=== PATIENT | female | born 1985 | race American Indian/Alaskan Native ===

== ENCOUNTER 2019-03-08 10:35 | Emergency (ER) | payer MEDICAID ==
[2019-03-08 11:22] VITALS: BP 110/74
--- NOTE | 2019-03-08 11:43 | Emergency Department Report ---
ED Female HPI - General Chief complaint: Vaginal Bleeding Stated complaint: STOMACH PAIN Time Seen by Provider: 03/08/19 11:31 Source: patient Mode of arrival: Ambulatory Limitations: No Limitations - History of Present Illness Initial comments: Patient presents to the ED at approximately 12 weeks gestation complaining of vaginal bleeding that began about 30 minutes ago. Patient stated last menstrual period as 11/08/2018. Patient states her RIB CUTTER is Dr. Cardoso and has an appointment today at the office. Complaint: vaginal bleeding - Related Data Allergies Allergy/AdvReac Type Severity Reaction Status Date / Time No Known Allergies Allergy Verified 03/08/19 11:22 ED Review of Systems ROS: Stated complaint: STOMACH PAIN Other details as noted in HPI Comment: All other systems reviewed and negative ED Past Medical Hx - Past Medical History Previous Medical History?: No - Surgical History Past Surgical History?: Yes Additional Surgical History: - Social History Smoking Status: Never Smoker Substance Use Type: None ED Physical Exam - General Limitations: No Limitations General appearance: alert, in no apparent distress - Head Head exam: Present: atraumatic, normocephalic - Eye Eye exam: Present: normal appearance - ENT ENT exam: Present: mucous membranes moist - Neck Neck exam: Present: normal inspection - Respiratory Respiratory exam: Present: normal lung sounds bilaterally. Absent: respiratory distress - Cardiovascular Cardiovascular Exam: Present: regular rate, normal rhythm. Absent: systolic murmur, diastolic murmur, rubs, gallop - GI/Abdominal GI/Abdominal exam: Present: soft, normal bowel sounds. Absent: distended, tenderness - Extremities Exam Extremities exam: Present: normal inspection, full ROM - Back Exam Back exam: Present: normal inspection - Neurological Exam Neurological exam: Present: alert, oriented X3 - Psychiatric Psychiatric exam: Present: normal affect, normal mood - Skin Skin exam: Present: warm, dry, intact, normal color. Absent: rash ED Course Vital Signs 03/08/19 03/08/19 10:35 12:19 Temperature 98.6 F Pulse Rate 87 Respiratory 16 18 Rate Blood Pressure 110/74 [Right] O2 Sat by Pulse 100 99 Oximetry ED Medical Decision Making - Lab Data Result diagrams: 03/08/19 11:40 03/08/19 11:40 - Radiology Data Radiology results: report reviewed, image reviewed ULTRASOUND OB <= 14 WEEKS FETUS HISTORY: Vaginal bleeding COMPARISON: None. TECHNIQUE: Routine transabdominal OB ultrasound performed. FINDINGS: Uterus: Mildly enlarged measuring 13.0 x 6.9 x 8.6 cm. Gestational Sac: Well-defined oval shape and intrauterine in location. Fetus/Embryo: [place]-rump length of 5.4 cm, corresponding to an estimated gestational age of 12 weeks 0 days. Embryonic/ anatomy is too small for evaluation. Embryonic/ cardiac activity: 163bpm Placenta: Too small for evaluation. Amniotic fluid volume: Subjectively appropriate for gestational age. Ovaries: The right ovary is normal in size and appearance with normal blood flow, measuring 3.0 x 2.0 x 2.7 cm. The left ovary is normal in size and appearance with normal blood flow, measuring 3.5 x 1.4 x 2.6 cm. Additional findings: None. IMPRESSION Viable, single intrauterine dated at 12 weeks 0 days. No acute abnormality is detected. Signer Name: Jason Vera Jr, MD Signed: 03/08/2019 2:06 PM Workstation Name: [id number] Transcribed By: TTR Dictated By: JASON VERA JR, MD Electronically Authenticated By: JASON VERA JR, MD Signed Date/Time: 03/08/19 1406 - Medical Decision Making 28-year-old female presents to ED with vaginal bleeding and ED course: Pt received ultra sound, CBC, urinalysis, test and quantitative ED All labs within normal limits, quantitative elevated matching gestation age Patient states that bleeding is resolved when she is went into the bathroom to check Patient is followed by an RIB CUTTER Dr. Cardoso Ultrasound report. See reported above Vital signs normalized patient is in no acute distress. I discussed with the patient if follow-up with her RIB CUTTER. She had a follow-up appointment with her RIB CUTTER today at 2:30 PM I discussed all labs and ultrasound findings with the patient. I discussed with the patient that he if bleeding worsens or new symptoms develop to return to ED immediately Critical care attestation.: If time is entered above; I have spent that time in minutes in the direct care of this critically ill patient, excluding procedure time. ED Disposition Clinical Impression: Vaginal bleeding during Disposition: DC-01 TO HOME OR SELFCARE Is pt being admited?: No Does the pt Need Aspirin: No Condition: Stable Instructions: Threatened Miscarriage (ED) Additional Instructions: Make sure to follow up with the primary care physician as discussed. Take all your medications as you've been prescribed. If you have any worsening symptoms or develop new symptoms please return to ED immediately. Referrals: ROBERTO CHILD MD [Primary Care Provider] - 3-5 Days KUSHAL CARDOSO MD [Staff Physician] - 3-5 Days Forms: Work/School Release Form(ED) Time of Disposition: 14:14
[2019-03-08 12:04] LABS: Basophils % (Auto) 0.3 % (0.0-1.8); Eosinophils # (Auto) 0.1 K/mm3 (0.0-0.4); Eosinophils % (Auto) 1.3 % (0.0-4.3); Hematocrit 37.5 % (30.3-42.9); Hemoglobin 13.2 gm/dl (10.1-14.3); Lymphocytes # (Auto) 2.7 K/mm3 (1.2-5.4); Lymphocytes % (Auto) 30.8 % (13.4-35.0); Mean Corpuscular HGB Conc 35 % (30-34); Mean Corpuscular Volume 96 fl (79-97); Monocytes # (Auto) 0.6 K/mm3 (0.0-0.8); Monocytes % (Auto) 7.4 % (0.0-7.3); Platelet Count 235 K/mm3 (140-440); Red Blood Count 3.91 M/mm3 (3.65-5.03); Red Cell Distribution Width 11.8 % (13.2-15.2)
[2019-03-08 12:24] LABS: BUN/Creatinine Ratio 18; Blood Urea Nitrogen 7 mg/dL (7-17); Calcium 8.9 mg/dL (8.4-10.2); Hemolysis Index 4
[2019-03-08 12:34] LABS: Bilirubin,Urine NEG (Negative); Blood,Urine SM (Negative); Color,Urine Yellow (Yellow); Mucus,Urine 1+ /HPF; Protein,Urine <15 mg/dL mg/dL (Negative)
--- NOTE | 2019-03-08 14:10 | Ultrasound Report ---
ULTRASOUND OB <= 14 WEEKS FETUS HISTORY: Vaginal bleeding COMPARISON: None. TECHNIQUE: Routine transabdominal OB ultrasound performed. FINDINGS: Uterus: Mildly enlarged measuring 13.0 x 6.9 x 8.6 cm. Gestational Sac: Well-defined oval shape and intrauterine in location. Fetus/Embryo: [place]-rump length of 5.4 cm, corresponding to an estimated gestational age of 12 weeks 0 days. Embryonic/ anatomy is too small for evaluation. Embryonic/ cardiac activity: 163bpm Placenta: Too small for evaluation. Amniotic fluid volume: Subjectively appropriate for gestational age. Ovaries: The right ovary is normal in size and appearance with normal blood flow, measuring 3.0 x 2. 0 x 2.7 cm. The left ovary is normal in size and appearance with normal blood flow, measuring 3.5 x 1.4 x 2.6 cm. Additional findings: None. IMPRESSION Viable, single intrauterine dated at 12 weeks 0 days. No acute abnormality is detected. Signer Name: Jason Vera Jr, MD Signed: 03/08/2019 2:06 PM Workstation Name: [id number]
== END 2019-03-08 16:51 | disposition home or self-care (01) ==
LOC: ED 10:35
DX: O20.8 Other hemorrhage in early pregnancy (principal); O26.891 Other specified pregnancy related conditions, first trimester; R10.2 Pelvic and perineal pain; Z3A.12 12 weeks gestation of pregnancy
CPT/HCPCS: 36415; 76801; 80048; 81001; 84702; 85025; 86900; 86901

== ENCOUNTER 2020-12-18 03:33 | Outpatient (CLI) | payer MEDICAID ==
[2020-12-18 03:53] VITALS: BP 115/73
== END 2020-12-18 04:45 | disposition home or self-care (01) ==
LOC: TRG 03:33 → APU 03:44 → TRG 04:45
PROVIDERS: ATTEND Obstetrics & Gynecology
DX: O36.8130 Decreased fetal movements, third trimester, not applicable or unspecified (principal); Z3A.36 36 weeks gestation of pregnancy
CPT/HCPCS: 59025

== ENCOUNTER 2020-12-25 18:03 | Inpatient (IN) | payer MEDICAID ==
[2020-12-25] MEDS ORDERED: LACTATED RINGERS 1,000 ML ONE (19:46)
[2020-12-25] MEDS ORDERED: TERBUTALINE 1 MG/1 ML INJ SUB-Q PRN (20:44)
[2020-12-25] MEDS ORDERED: MINERAL OIL 30 ML ORAL LIQD PO PRN (20:44)
[2020-12-25] MEDS ORDERED: ePHEDrine SULFATE 50 MG/1 ML INJ IV PRN (20:44)
[2020-12-25] MEDS ORDERED: OXYTOCIN DRIP 30 UNITS/500 ML BAG IV SCH ×2 (21:00)
[2020-12-25 21:23] LABS: Hematocrit 40.2 % (30.3-42.9); Hemoglobin 13.7 gm/dl (10.1-14.3); Mean Corpuscular HGB Conc 34 % (30-34); Mean Corpuscular Volume 96 fl (79-97); Platelet Count 192 K/mm3 (140-440); Red Cell Distribution Width 13.4 % (13.2-15.2)
[2020-12-25] MEDS ORDERED: LIDOCAINE (2%) 20 MG/1 ML VIAL 20 ML MDV INFILTRATI ONE (21:44)
[2020-12-25] MEDS ORDERED: LACTATED RINGERS 1,000 ML IV SCH (21:45)
--- NOTE | 2020-12-26 04:06 | History and Physical Report ---
History of Present Illness Date of examination: 12/26/20 Date of admission: 12/25/20 18:03 Chief complaint: low fluid History of present illness: 35-year-old -0-0-2 at 38+2 weeks who was admitted for findings of oligohydramnios. The patient is being followed by maternal- medicine for advanced maternal age, gestational diabetes and obesity. The recommendation of maternal- medicine to proceed with delivery. The patient had a amniotic fluid index of 4.9 cm. She denies any leakage of fluid. The patient's course is also complicated by previous delivery x2. The patient has declined tubal ligation. 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 Social history: single - Obstetrical History Expected Date of Delivery: 01/07/21 Actual Gestation: 38 Week(s) 2 Day(s) : 3 Para: 2 Hx # Term Pregnancies: 2 Number of Pregnancies: 0 Spontaneous Abortions: 0 Induced : 0 Number of Living Children: 2 Medications and Allergies Allergies Allergy/AdvReac Type Severity Reaction Status Date / Time No Known Allergies Allergy Verified 03/08/19 11:22 Home Medications Medication Instructions Recorded Confirmed Last Taken Type Ibuprofen [Motrin] 800 mg PO Q8HR PRN #30 tablet 09/18/19 12/26/20 Unknown Rx RX: Ferrous Sulfate [Feosol 325 MG 325 mg PO BID #60 tablet 09/18/19 12/26/20 12/25/20 Rx tab] oxyCODONE /ACETAMINOPHEN [Percocet 1 tab PO Q6HR PRN #40 tablet 09/18/19 12/26/20 Unknown Rx 5/325] Active Meds: Active Medications Ephedrine Sulfate (Ephedrine Sulfate 50 Mg/1 Ml Inj) 10 mg IV Q2M PRN PRN Reason: Hypotension Oxytocin/Sodium Chloride (Pitocin/Ns 30 Unit/500ml) 30 units in 500 mls @ 2 mls/hr IV TITR ALFREDO; Protocol Lactated Ringer's (Lactated Ringers) 1,000 mls @ 125 mls/hr IV DIRECT ALFREDO Oxytocin/Sodium Chloride (Pitocin/Ns 30 Unit/500ml) 30 units in 500 mls @ 40 mls/hr IV TITR ALFREDO; Protocol Mineral Oil (Mineral Oil 30 Ml Oral Liqd) 30 ml PO QHS PRN PRN Reason: Constipation Terbutaline Sulfate (Terbutaline 1 Mg/1 Ml Inj) 0.25 mg SUB-Q ONCE PRN PRN Reason: Hyperstimulation/Hypertonicity Review of Systems All systems: negative - Vital Signs Vital signs: Vital Signs Pulse BP 95 H 114/68 12/25/20 19:05 12/25/20 19:05 Temp Pulse Resp BP Pulse Ox 98.3 F 89 30 H 113/69 82 L 12/26/20 00:09 12/26/20 00:12 12/26/20 00:09 12/26/20 00:11 12/26/20 00:12 - Physical Exam Breasts: Positive: deferred Cardiovascular: Regular rate Lungs: Positive: Clear to auscultation Abdomen: Positive: normal appearance Results Result Diagrams: 12/25/20 20:39 Abnormal lab results 12/25/20 Range/Units 20:39 MCH 33 H (28-32) pg All other labs normal. Assessment and Plan - Patient Problems (1) Oligohydramnios Current Visit: Yes Status: Acute Plan to address problem: admit for repeat delivery (2) Previous delivery, delivered Current Visit: Yes Status: Acute
[2020-12-26] MEDS ORDERED: BICITRA ORAL LIQD 30ML PO ONE ×2 (04:08→07:00)
[2020-12-26] MEDS ORDERED: METOCLOPRAMIDE 10 MG/2 ML INJ IV ONE ×2 (04:08→07:00)
[2020-12-26] MEDS ORDERED: FAMOTIDINE 20 MG/2 ML INJ IV ONE ×2 (04:08→07:00)
[2020-12-26] MEDS ORDERED: LACTATED RINGERS 1,000 ML IV SCH (04:15)
[2020-12-26] MEDS ORDERED: ceFAZolin/Water 2 GM/20 ML 2 GM/20 ML SYRINGE IV NR (05:00)
[2020-12-26] MEDS ORDERED: OXYTOCIN DRIP 30 UNITS/500 ML BAG IV SCH ×2 (05:00→09:00)
--- NOTE | 2020-12-26 07:01 | Anesthesia Day of Surgery ---
Anesthesia Day of Surgery - Day of Surgery Patient Examined: Yes Patient H&P Reviewed: Yes Patient is NPO: Yes
--- NOTE | 2020-12-26 07:01 | Anesthesia Consultation ---
Anesthesia Consult and Med Hx Date of service: 12/26/20 - Airway Anesthetic Teeth Evaluation: Good ROM Head & Neck: Adequate Mental/Hyoid Distance: Adequate Mallampati Class: Class II Intubation Access Assessment: Probably Good - Pulmonary Exam CTA: Yes - Cardiac Exam Cardiac Exam: RRR - Pre-Operative Health Status ASA Pre-Surgery Classification: ASA3 Proposed Anesthetic Plan: Spinal - Pulmonary Hx Asthma: No COPD: No Hx Pneumonia: No - Cardiovascular System Hx Hypertension: No - Central Nervous System Hx Seizures: No Hx Psychiatric Problems: No - Endocrine Hx Renal Disease: No Hx End Stage Renal Disease: No Hx Non-Insulin Dependent Diabetes: Yes Hx Hypothyroidism: No Hx Hyperthyroidism: No - Hematic Hx Anemia: No Hx Sickle Cell Disease: No - Other Systems Hx Alcohol Use: No Hx Obesity: Yes
[2020-12-26] MEDS ORDERED: OXYTOCIN 10 UNIT/1 ML INJ ONE (08:04)
[2020-12-26] MEDS ORDERED: LACTATED RINGERS 1,000 ML ONE (08:19)
[2020-12-26] MEDS ORDERED: HETASTARCH 6% 500 ML IV ONE (08:28)
--- NOTE | 2020-12-26 08:37 | Procedure Note ---
OB Delivery Note - Delivery Date of Delivery: 12/26/20 Surgeon: LAVERNE MCKENNA Estimated blood loss: 500cc - Section Preop diagnosis: repeat , other (Oligohydramnios) Postop diagnosis: same section procedure: section, repeat low transverse Disposition: PACU Complications: none - A at 1 minute: 8 at 5 minutes: 9 Infant Gender: Male (Weight 6 pounds 7 ounces)
--- NOTE | 2020-12-26 08:39 | Operative Report ---
Operative Report Operative Report: Date of surgery: December 26, 2020 Preoperative diagnosis: at 38+2 weeks; previous delivery; ol igohydramnios Postoperative diagnosis: Same as above Procedure: Repeat low transverse delivery Surgeon: Amparo Allan M.D. Anesthesia: Regional Estimated blood loss: 500 mL IV fluids: 1000 mL Urine output: 25 mL Findings: Liveborn male with Apgars of 8 and 9 weight 6 pounds 7 ounces Indications: 35-year-old -0-0-2 at 38+2 weeks who presents for repeat delivery for oligohydramnios. Procedure: The patient was taken to the operating room and given regional anesthesia without complication. She was prepped and draped in a normal sterile fashion. A Pfannenstiel skin incision was made down to layer the fascia which was nicked in the midline extended laterally with the Bovie cautery. The superior aspect of the rectus fascia was grasped with [place] clamps x2 and the rectus muscles off sharply. This was done in inferior fashion as well. The rectus muscle midline and peritoneum entered bluntly. An Josse retractor was then inserted. A bladder blade was placed. The vesicouterine peritoneum was then entered sharply with Metzenbaum scissors. A bladder flap was created digitally. A low transverse uterine in cision was then made and extended digitally. There was meconium stained fluid upon entry into the uterine cavity. The head was delivered through the incision with fundal pressure. The cord was clamped and cut x2 and infant was passed off to pediatrics. The placenta was then manually extracted. The uterus was then exteriorized and cleared of clots and debris. The uterine incision was then closed in a running locked fashion with 0 Vicryl additional imbricating stitch was applied for 2 layer closure. The posterior cul-de-sac was then copiously irrigated. The uterus was repl aced back into the abdomen and pelvis were the gutters were then irrigated. The Josse retractor was then removed. The peritoneum was then reapproximated with 3-0 Vicryl incorporating the rectus muscle. The fascia was then closed with 0 Vicryl in a running fashion. The skin was then reapproximated with 3-0 Monocryl on a Dustin needle subcuticular fashion. Steri-Strips to place across the incision and a Crede procedures performed at the end of the surgery. A pressure dressing was applied to the incision. The surgery productive of a liveborn male with Apgars of 8 and 9 weight 6 pounds 7 ounces. The patient was taken to the recovery room in stable condition. All sponge laps and needle counts correct x2.
--- NOTE | 2020-12-26 08:41 | Progress Note ---
Spinal Anesthesia Block - Spinal Anesthesia Block Start Time: 07:42 Stop Time: 07:48 Performed by:: YOAN REVELES Procedure: Sitting, sterile chlorahexadine 0.5% prep/drape, 1% lidocaine skin local, 25G spinal needle + introducer at L3-4, + CSF, - Heme, [1.9 ml 0.5% bupivacaine + 10 mcg dexmedetomidine] injected, drape removed, patient positioned supine with left uterine displacement, and spinal level verified to be adequate prior to surgery. Yoan DIETRICH
[2020-12-26] MEDS ORDERED: KETOROLAC 30 MG/1 ML INJ IV PRN (09:00)
[2020-12-26] MEDS ORDERED: WITCH HAZEL/ GLYCERIN PAD TP PRN (09:00)
[2020-12-26] MEDS ORDERED: NALOXONE 0.4 MG/1 ML INJ IV PRN (09:00)
[2020-12-26] MEDS ORDERED: MORPHINE 4 MG/1 ML INJ IV PRN (09:00)
[2020-12-26] MEDS ORDERED: ACETAMINOPHEN 325 MG TAB PO PRN (09:00)
[2020-12-26] MEDS ORDERED: LANOLIN/ZINC/DIMETHICONE (LANSINOH) 7 GM TP PRN (09:00)
[2020-12-26] MEDS ORDERED: BUPIVACAINE/PF (0.5%) 5 MG/1 ML 30 ML VIAL INFILTRATI ONE (09:21)
[2020-12-26] MEDS ORDERED: PHENYLEPHRINE 10 MG/1 ML INJ SDV ONE (09:21)
[2020-12-26] MEDS ORDERED: dexAMETHasone 20 MG/5 ML VIAL ONE (09:21)
[2020-12-26] MEDS ORDERED: SODIUM CHLORIDE 0.9% 100 ML ONE (09:21)
[2020-12-26] MEDS ORDERED: KETOROLAC 30 MG/1 ML INJ ONE (09:21)
[2020-12-26] MEDS ORDERED: ONDANSETRON 4 MG/2 ML INJ ONE (09:21)
--- NOTE | 2020-12-26 09:29 | Progress Note ---
Regional Anesthesia Block - Regional Anesthesia Block Start Time: 08:55 Stop Time: 09:00 Performed By:: YOAN REVELES Procedure: U/S guided bilateral tap block performed for post-operative pain requested by Dr. Liang. H&P & labs reviewed. Procedure explained, questions answered, consent obtained. Patient in the supine position with ekg, blood pressure cuff and pulse ox on and working in PACU. Timeout performed immediately before start of procedure. Probe placed in the mid-axillary line and the external oblique, internal oblique, and transverse abdominus muscles identified. Skin was cleansed with chlorahexadine 0.5% and allowed to dry. A 4" 20 G Hanson echogenic needle was advanced in plane until the tip was in the fascial plane between the internal oblique and the transverse abdominus. After negative aspiration 35 ml/side of [30 ml 0.5% Bupivacaine], [10 mg dexamethasone], and [40 ml sterile saline] was injected in 5 ml increments with negative aspiration in between. Patient tolerated procedure well. Yoan DIETRICH
--- NOTE | 2020-12-26 13:24 | Post Anesthesia Evaluation ---
- Post Anesthesia Evaluation Patient Participated: Yes Airway Patent: Yes Stable Respiratory Function: Yes Nausea/Vomiting: No Temp > 96.8F: Yes Pain Manageable: Yes Adequeate Hydration: Yes Anesthesia Complications: No Block Receding Appropriately: Yes
[2020-12-26] MEDS: D5W/LACTATED RINGERS 1,000 ML IV SCH ×2 (16:20→23:52)
[2020-12-26] MEDS: oxyCODONE /ACETAMINOPHEN 5-325MG TAB PO PRN (16:25)
[2020-12-26 20:11] LABS: Hematocrit 33.6 % (30.3-42.9); Hemoglobin 11.3 gm/dl (10.1-14.3)
[2020-12-27] MEDS: oxyCODONE /ACETAMINOPHEN 5-325MG TAB PO PRN ×4 (04:58→23:17)
--- NOTE | 2020-12-27 10:27 | Progress Note ---
Assessment and Plan Routine postop care - Patient Problems (1) Previous delivery, delivered Current Visit: Yes Status: Acute Plan to address problem: POD 1 -post op care per routine -ambulation/IS use encouraged Anticipate discharge POD 2 (2) Gestational diabetes Current Visit: Yes Status: Acute Plan to address problem: -repeat testing PP Subjective - Subjective Principal diagnosis: Repeat delivery Interval history: 35-year-old s/p RCD at 38w2d for oligohydramnios with hx of prior delivery and undesired fertility. was complicated by advanced maternal age, gestational diabetes and obesity. Patient reports: appetite normal, voiding normally, pain well controlled, flatus, ambulating normally : doing well Objective - Vital Signs Latest vital signs: Vital Signs Temp Pulse Resp BP BP Pulse Ox 12/27/20 08:13 98.2 F 63 18 100/70 100 12/27/20 05:26 98.2 F 74 18 96/62 98 12/27/20 01:32 98.9 F 65 18 102/63 100 12/26/20 21:39 99.0 F 67 18 112/74 100 12/26/20 16:30 98.0 F 77 18 105/61 95 12/26/20 11:12 97.7 F 69 22 87/47 98 Intake and Output 12/26/20 12/27/20 12/27/20 22:59 06:59 14:59 Intake Total 480 1121.667 Output Total 1700 600 Balance -1220 521.667 Intake: IV 941.667 D5lr 1,000 ml @ 125 mls/ 941.667 hr IV DIRECT ALFREDO Rx#: [id number] Intake, Free Water 480 180 Output: Urine 1700 600 Indwelling Catheter 1700 Void 600 Other: Total, Output Amount 900 600 # Voids Void 2 - Exam Breasts: Present: deferred Cardiovascular: Present: Regular rate Lungs: Present: Clear to auscultation Abdomen: Present: normal appearance Uterus: Present: normal, firm. Absent: tenderness Extremities: Present: normal Incision: Present: normal, dry, intact
[2020-12-27] MEDS: IBUPROFEN 600 MG TAB PO PRN (18:07)
[2020-12-28] MEDS: oxyCODONE /ACETAMINOPHEN 5-325MG TAB PO PRN (07:54)
--- NOTE | 2020-12-28 08:22 | Progress Note ---
Assessment and Plan Routine postop care Discharge today. - Patient Problems (1) Previous delivery, delivered Current Visit: Yes Status: Acute Plan to address problem: POD 2 -post op care per routine -ambulation/IS use encouraged -br/bt feeding-tubal ligation not completed,plans for Mirena PP (2) Gestational diabetes Current Visit: Yes Status: Acute Plan to address problem: -repeat testing PP Subjective - Subjective Principal diagnosis: Repeat delivery Interval history: 35-year-old s/p RCD at 38w2d for oligohydramnios with hx of prior delivery. was complicated by advanced maternal age, gestational diabetes and obesity. Patient reports: appetite normal, voiding normally, pain well controlled, flatus, ambulating normally [place]: doing well Objective - Vital Signs Latest vital signs: Vital Signs Temp Pulse Resp BP BP Pulse Ox 12/28/20 00:18 97.9 F 89 18 107/72 97 12/27/20 23:17 18 12/27/20 15:20 98.0 F 91 H 18 112/72 100 Intake and Output 12/27/20 12/28/20 12/28/20 22:59 06:59 14:59 Intake Total 360 240 Balance 360 240 Intake: Oral 240 Intake, Free Water 360 Other: Total, Intake Amount 240 # Voids Void 2 1 - Exam Breasts: Present: normal Cardiovascular: Present: Regular rate Lungs: Present: Clear to auscultation Abdomen: Present: normal appearance, soft, normal bowel sounds. Absent: distention, tenderness, guarding Uterus: Present: normal, firm Extremities: Present: normal Incision: Present: normal, dry, intact
--- NOTE | 2020-12-28 08:25 | Discharge Summary ---
Providers - Providers Date of Admission: 12/25/20 18:03 Date of discharge: 12/28/20 Attending physician: LAVERNE MCKENNA Primary care physician: LAVERNE MCKENNA Hospitalization Reason for admission: section Procedure: section, repeat low transverse Procedure details: Repeat delivery, hx of prior x2. For details see operative report. No complications documented. Incision: normal, dry, intact Other procedures: none complications: none Discharge diagnosis: IUP at term delivered baby: male Hospital course: Patient was sent for delivery after MFM evaluation was significant for oligohydramnios. Repeat delivery completed without difficulty. She delivered a liveborn male infant with Apgars of 8 and 9 weight 6 pounds 7 ounc es. On POD 2 the patient was meeting criteria for discharge with stable VSS and hematocrit, tolerating po with pain controlled on oral meds and desired to go home. Condition at discharge: Good Disposition: DC-01 TO HOME OR SELFCARE - Discharge Diagnoses (1) Previous delivery, delivered Status: Acute Comment: br/bt feeding, requesting Mirena placement outpatient (2) Gestational diabetes Status: Acute Comment: will need repeat evaluation PP Plan - Discharge Medications Prescriptions: Ferrous Sulfate [Feosol 325 MG tab] 325 mg PO BID #60 tablet Ibuprofen [Motrin 800 MG tab] 800 mg PO Q8HR PRN #30 tablet PRN Reason: Pain, Moderate (4-6) oxyCODONE /ACETAMINOPHEN [Percocet 5/325 mg] 1 tab PO Q6HR PRN #20 tablet PRN Reason: Pain , Severe (7-10) - Provider Discharge Summary Activity: routine, no sex for 6 weeks Diet: routine Instructions: routine Additional instructions: [] Smoking cessation referral if applicable(refer to patient education folder for contact #) [] Refer to [facility] Booklet Call your doctor immediately for: * Fever > 100.5 * Heavy vaginal bleeding ( >1 pad per hour) * Severe persistent headache * Shortness of breath * Reddened, hot, painful area to leg or breast * Drainage or odor from incision. * Keep incision clean and dry at all times and follow doctor's instructions regarding bathing/showering - Follow up plan Follow up: LAVERNE MCKENNA MD [Primary Care Provider] - 7 Days
[2020-12-28] MEDS: IBUPROFEN 600 MG TAB PO PRN (12:13)
[2020-12-28 18:59] VITALS: BP 111/76
== END 2020-12-28 16:00 | disposition home or self-care (01) | DRG 766 ==
LOC: APU 18:03 → LD 18:04 → OB 12-26 11:28
PROVIDERS: ADMIT Obstetrics & Gynecology; ATTEND Obstetrics & Gynecology
PROC: 10D00Z1 Extraction of Products of Conception, Low, Open Approach (ICD-10-PCS; principal; 2020-12-26)
PROC: 3E0T3BZ Introduction of Anesthetic Agent into Peripheral Nerves and Plexi, Percutaneous Approach (ICD-10-PCS; 2020-12-26)
DX: O41.03X0 Oligohydramnios, third trimester, not applicable or unspecified (principal); O34.211 Maternal care for low transverse scar from previous cesarean delivery; Z3A.38 38 weeks gestation of pregnancy; Z37.0 Single live birth; Z20.822 Contact with and (suspected) exposure to COVID-19; O99.214 Obesity complicating childbirth; E66.9 Obesity, unspecified; O24.429 Gestational diabetes mellitus in childbirth, unspecified control
CPT/HCPCS: 36415; 59025; 80307; 82962; 85014; 85018; 85027; 86592; 86850; 86900; 86901; 96360; G0378; J1100; J1885; J2270; J2370; J2405; J2765; J3490; J7120; J7121; Q0177; U0003

== ENCOUNTER 2021-11-07 10:06 | Emergency (ER) | payer MEDICAID ==
[2021-11-07 10:18] VITALS: BP 149/96
[2021-11-07] MEDS ORDERED: ONDANSETRON 4 MG ODT TAB PO ONE (11:17)
[2021-11-07] MEDS ORDERED: DIPHENOXYLATE/ATROPINE TAB PO ONE (11:17)
[2021-11-07] MEDS ORDERED: DICYCLOMINE 20 MG TAB PO ONE (11:17)
--- NOTE | 2021-11-07 11:20 | Emergency Department Report ---
ED N/V/D HPI - General Chief complaint: Nausea/Vomiting/Diarrhea Stated complaint: VOMITTING AND LOOSE STOOL Time Seen by Provider: 11/07/21 11:15 Source: patient Mode of arrival: Ambulatory Limitations: No Limitations - History of Present Illness Initial comments: 36-year-old black female with no past medical history presents to the emergency department for evaluation of 2 to 3-week history of nausea, vomiting, and diarrhea. She states that she is also having intermittent abdominal cramping. She states that vomiting has improved, and now she vomits about once a day. She states that she is still having multiple episodes of diarrhea during the day. She denies fever, vaginal discharge, and chills. She states that when her symptoms initially started that several of the people in her household have the same symptoms, but they has since improved. She states that her last menstrual period was about 2 months ago and she has an IUD in place. MD complaint: nausea, vomiting, diarrhea, abdominal pain -: Gradual, week(s) (2-3) Description of Diarrhea: water Associated Abdominal Pain: Yes Radiation: none Severity: mild, moderate Pain Scale: 4 Quality: cramping Consistency: intermittent Worsens with: none Context: sick contacts Associated Symptoms: chest pain, cough, nausea/vomiting - Related Data Previous Rx's Medication Instructions Recorded Last Taken Type Ferrous Sulfate [Feosol 325 MG tab] 325 mg PO BID #60 tablet 12/28/20 Unknown Rx Ibuprofen [Motrin 800 MG tab] 800 mg PO Q8HR PRN #30 tablet 12/28/20 Unknown Rx oxyCODONE /ACETAMINOPHEN [Percocet 1 tab PO Q6HR PRN #20 tablet 12/28/20 Unknown Rx 5/325 mg] Dicyclomine [Bentyl] 20 mg PO QID PRN #21 bottle 11/07/21 Unknown Rx Ondansetron [Zofran Odt] 4 mg PO Q8HR PRN #12 tab.rapdis 11/07/21 Unknown Rx Allergies Allergy/AdvReac Type Severity Reaction Status Date / Time No Known Allergies Allergy Verified 03/08/19 11:22 ED Review of Systems ROS: Stated complaint: VOMITTING AND LOOSE STOOL Other details as noted in HPI Comment: All other systems reviewed and negative Constitutional: denies: chills, fever, malaise, weakness Respiratory: denies: shortness of breath Cardiovascular: denies: chest pain, dyspnea on exertion Gastrointestinal: abdominal pain, nausea, vomiting, diarrhea Neurological: denies: headache ED Past Medical Hx - Past Medical History Hx Hypertension: No Hx Congestive Heart Failure: No Hx Diabetes: No Hx Deep Vein Thrombosis: No Hx Renal Disease: No Hx Sickle Cell Disease: No Hx Seizures: No Hx Asthma: No Hx COPD: No Hx HIV: No - Surgical History Additional Surgical History: - Social History Smoking Status: Never Smoker - Medications Home Medications: Home Medications Medication Instructions Recorded Confirmed Last Taken Type Ferrous Sulfate [Feosol 325 MG tab] 325 mg PO BID #60 tablet 12/28/20 Unknown Rx Ibuprofen [Motrin 800 MG tab] 800 mg PO Q8HR PRN #30 tablet 12/28/20 Unknown Rx oxyCODONE /ACETAMINOPHEN [Percocet 1 tab PO Q6HR PRN #20 tablet 12/28/20 Unknown Rx 5/325 mg] Dicyclomine [Bentyl] 20 mg PO QID PRN #21 bottle 11/07/21 Unknown Rx Ondansetron [Zofran Odt] 4 mg PO Q8HR PRN #12 tab.rapdis 11/07/21 Unknown Rx ED Physical Exam - General Limitations: No Limitations General appearance: alert, in no apparent distress - Head Head exam: Present: atraumatic, normocephalic - Eye Eye exam: Present: normal appearance. Absent: conjunctival injection - Neck Neck exam: Present: normal inspection - Respiratory Respiratory exam: Present: normal lung sounds bilaterally. Absent: respiratory distress, wheezes, rales, rhonchi, chest wall tenderness - Cardiovascular Cardiovascular Exam: Present: tachycardia, normal heart sounds - GI/Abdominal GI/Abdominal exam: Present: soft, normal bowel sounds. Absent: distended, tenderness, guarding, rebound, rigid - Extremities Exam Extremities exam: Present: normal inspection - Back Exam Back exam: Present: normal inspection. Absent: tenderness, CVA tenderness (R), CVA tenderness (L) - Neurological Exam Neurological exam: Present: alert, oriented X3 - Psychiatric Psychiatric exam: Present: normal affect - Skin Skin exam: Present: warm, dry, intact, normal color ED Course Vital Signs 11/07/21 10:14 Temperature 99.4 F Pulse Rate 114 H Respiratory 18 Rate Blood Pressure 149/96 [Right] O2 Sat by Pulse 97 Oximetry - Reevaluation(s) Reevaluation #1: 11/07/21 12:48 Patient states that she feels much better. ED Medical Decision Making - Medical Decision Making 36-year-old black female with no past medical history presents to the emergency department for evaluation of 2 to 3-week history of nausea, vomiting, and diarrhea. She states that she is also having intermittent abdominal cramping. She states that vomiting has improved, and now she vomits about once a day. She states that she is still having multiple episodes of diarrhea during the day. She denies fever, vaginal discharge, and chills. She states that when her symptoms initially started that several of the people in her household have the same symptoms, but they has since improved. She states that her last menstrual period was about 2 months ago and she has an IUD in place. NO acute abnormalities noted on exam, and urine negative for UTI. History, symptoms, and exam consistent with gastroenteritis. She will be treated with Bentyl and zofron in ED and at home. She was advised to take medications as prescribed, drink plenty of non caffienated fluids, and follow up with pcp if worsening symptoms. Critical care attestation.: If time is entered above; I have spent that time in minutes in the direct care of this critically ill patient, excluding procedure time. ED Disposition Clinical Impression: Gastroenteritis Disposition: 01 HOME / SELF CARE / HOMELESS Is pt being admited?: No Does the pt Need Aspirin: No Condition: Stable Instructions: Viral Gastroenteritis, Adult, [id number] Additional Instructions: Take medications as prescribed. Drink plenty of noncaffeinated fluids. Follow- up with primary care provider for further evaluation and management. Return to the ER for any concerning symptoms. Prescriptions: Dicyclomine [Bentyl] 20 mg PO QID PRN #21 bottle PRN Reason: Pain, Moderate (4-6) Ondansetron [Zofran Odt] 4 mg PO Q8HR PRN #12 tab.rapdis PRN Reason: Nausea And Vomiting Referrals: MATTIE TRIPLETT MD [Referring] - 3-5 Days Time of Disposition: 12:51
[2021-11-07 12:30] LABS: Bilirubin,Urine NEG (Negative); Blood,Urine SM (Negative); Color,Urine Yellow (Yellow); Mucus,Urine 2+ /HPF; Urobilinogen,Urine < 2.0 mg/dL (<2.0)
[2021-11-07 12:46] LABS: HCG Qualitative,Urine Negative (Negative)
== END 2021-11-07 13:03 | disposition home or self-care (01) ==
LOC: ED 10:06
DX: K52.9 Noninfective gastroenteritis and colitis, unspecified (principal); Z98.890 Other specified postprocedural states; Z79.899 Other long term (current) drug therapy
CPT/HCPCS: 81001; 81025; 99283; J3490; Q0162